=== PATIENT | female | born 1965 | race Caucasian/White ===

== ENCOUNTER 2017-09-02 04:05 | Emergency (ER) | payer BC ==
[2017-09-02] MEDS ORDERED: HYDROmorphone 1 MG/ML Syringe IVPUSH ONE (04:29)
[2017-09-02] MEDS ORDERED: Ondansetron 4 MG/2 ML SDV IVPUSH ONE (04:29)
[2017-09-02] MEDS ORDERED: Sodium Chloride 0.9% 1,000 ML IV SCH (04:30)
[2017-09-02] MEDS ORDERED: Tamsulosin 0.4 MG Cap.ER PO ONE (04:34)
[2017-09-02] MEDS ORDERED: Ketorolac 30 MG/ML SDV IVPUSH STA (04:35)
--- NOTE | 2017-09-02 04:41 | EDM.PDOC ---
<Ernesto Velasquez - Last Filed: 09/02/17 06:50> ED HPI GENERAL MEDICAL PROBLEM - General Chief Complaint: Flank Pain Stated Complaint: LEFT SIDE PAIN Time Seen by Provider: 09/02/17 04:23 Source of Information: Reports: Patient, Other (Friend) History Limitations: Reports: No Limitations - History of Present Illness INITIAL COMMENTS - FREE TEXT/NARRATIVE: The patient states that she has not been feeling well for the past few days, but was then woken at 01:50 this morning with severe sharp/crampy left upper abdominal pain radiating to her left flank. The pain has progressively gotten worse. It is not modifiable. The patient has had nausea and emesis. She reports weeks of constipation, but no recent diarrhea. She denies having dysuria, but has had urinary urgency for past 7 days. No recent fever. No prior similar symptoms. The patient's PCP is Dr. Barth. Left Lower Abdomen Pain Score (Numeric/FACES): 8 - Related Data Allergies Allergy/AdvReac Type Severity Reaction Status Date / Time Penicillins Allergy Hives Verified 09/02/17 04:15 Home Meds: Home Meds Digoxin [Digox] 125 mcg PO DAILY 09/02/17 [History] Glimepiride [Amaryl] 4 mg PO DAILY 09/02/17 [History] Hydrocodone/Acetaminophen [Hydrocodon-Acetaminophen 5-325] 1 - 2 each PO Q6HR PRN #20 tablet 09/02/17 [Rx] Levofloxacin [Levaquin] 500 mg PO Q24H #5 tablet 09/02/17 [Rx] Metoprolol Tartrate [Lopressor] 100 mg PO DAILY 09/02/17 [History] Multivitamins [Tab-A-George] 1 tab PO DAILY 09/02/17 [History] Raloxifene HCl [Evista] 60 mg PO DAILY 09/02/17 [History] Tamsulosin HCl [Flomax] 0.4 mg PO DAILY #7 cap.er.24h 09/02/17 [Rx] atorvaSTATin [Lipitor] 40 mg PO BEDTIME 09/02/17 [History] metFORMIN [Glucophage XR] 1,000 mg PO BIDMEALS 09/02/17 [History] Past Medical History Cardiovascular History: Reports: Arrhythmia (tachycardia), High Cholesterol, Hypertension Neurological History: Reports: Migraines Endocrine/Metabolic History: Reports: Diabetes, Type I Oncologic (Cancer) History: Reports: Breast - Past Surgical History HEENT Surgical History: Reports: Tonsillectomy (2000) GI Surgical History: Reports: Bariatric Procedure (Gastric sleeve, 2011) Female Surgical History: Reports: Hysterectomy (2005), Salpingo-Oophorectomy (2005) Musculoskeletal Surgical History: Reports: Carpal Tunnel (bilateral 1997) Oncologic Surgical History: Reports: Biopsy of Breast (left), Lumpectomy (left, 2005) Social & Family History - Tobacco Use Smoking Status *Q: Never Smoker - Alcohol Use Alcohol Use History: Yes Alcohol Use Frequency: Socially - Recreational Drug Use Recreational Drug Use: No - Living Situation & Occupation Living situation: Reports: , Other (with friend) 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 ED EXAM, RENAL/ - Physical Exam Exam: See Below Exam Limited By: No Limitations General Appearance: Alert, WD/WN, Moderate Distress (crying with pain) Eye Exam: Bilateral Eye: Normal Inspection Ears: Normal External Exam, Hearing Grossly Normal Nose: Normal Inspection, No Blood Throat/Mouth: Normal Inspection, Normal Lips, Normal Voice, No Airway Compromise Head: Atraumatic, Normocephalic Neck: Normal Inspection, Full Range of Motion Respiratory/Chest: No Respiratory Distress, Lungs Clear, Normal Breath Sounds, No Accessory Muscle Use Cardiovascular: Normal Peripheral Pulses, Regular Rate, Rhythm, No Gallop, No JVD, No Murmur, No Rub GI/Abdominal: Normal Bowel Sounds, Soft, Non-Tender (including the LUQ), No Organomegaly, No Distention, No Abnormal Bruit, No Mass (Female) Exam: Deferred Rectal (Female) Exam: Deferred Back Exam: Normal Inspection, Full Range of Motion, CVA Tenderness (L). No: CVA Tenderness (R) Extremities: Normal Inspection, Normal Range of Motion, No Pedal Edema, Normal Capillary Refill Neurological: Alert, Oriented, Normal Cognition, No Motor/Sensory Deficits Psychiatric: Normal Affect Skin Exam: Warm, Dry, Intact, Normal Color, No Rash Course - Vital Signs Last Recorded V/S: Last Vital Signs Temp 98.3 F 09/02/17 04:11 Pulse 84 09/02/17 04:11 Resp 18 09/02/17 04:11 BP 156/90 H 09/02/17 04:11 Pulse Ox 97 09/02/17 04:11 - Orders/Labs/Meds Orders: Active Orders 24 hr Category Date Time Status Strain Urine [RC] ASDIRECTED Care 09/02/17 04:35 Active CULTURE URINE [RM] Stat Lab 09/02/17 05:00 Results Sodium Chloride 0.9% [Normal Saline] 1,000 ml Med 09/02/17 04:30 Active IV ASDIRECTED Medication Orders Sodium Chloride (Normal Saline) 1,000 mls @ 150 mls/hr IV ASDIRECTED TIMO Last Admin: 09/02/17 04:36 Dose: 150 mls/hr Labs: Laboratory Tests 09/02/17 09/02/17 09/02/17 Range/Units 05:00 05:40 05:40 WBC 10.24 H (3.98-10.04) K/mm3 RBC 4.57 (3.98-5.22) M/mm3 Hgb 13.3 (11.2-15.7) gm/L Hct 39.0 (34.1-44.9) % MCV 85.3 (79.4-94.8) fl MCH 29.1 (25.6-32.2) pg MCHC 34.1 (32.2-35.5) g/dl RDW Std Deviation 38.6 (36.4-46.3) fL Plt Count 180 L (182-369) K/mm3 MPV 10.2 (9.4-12.3) fl Neutrophils % (Manual) 90 H (40-60) % Band Neutrophils % 2 (0-10) % Lymphocytes % (Manual) 4 L (20-40) % Atypical Lymphs % 0 % Monocytes % (Manual) 3 (2-10) % Eosinophils % (Manual) 1 (0.7-5.8) % Basophils % (Manual) 0 L (0.1-1.2) Platelet Estimate Adequate RBC Morph Comment Normal Sodium 136 (136-145) mEq/L Potassium 3.9 (3.5-5.1) mEq/L Chloride 97 L (98-107) mEq/L Carbon Dioxide 31 (21-32) mEq/L Anion Gap 11.9 (5-15) BUN 15 (7-18) mg/dL Creatinine 0.6 (0.55-1.02) mg/dL Est Cr Clr Drug Dosing 111.90 mL/min Estimated GFR (MDRD) > 60 (>60) mL/min BUN/Creatinine Ratio 25.0 H (14-18) Glucose 374 H (74-106) mg/dL Calcium 9.0 (8.5-10.1) mg/dL Total Bilirubin 0.7 (0.2-1.0) mg/dL AST 23 (15-37) U/L ALT 43 (14-59) U/L Alkaline Phosphatase 69 (46-116) U/L Total Protein 6.9 (6.4-8.2) g/dl Albumin 3.2 L (3.4-5.0) g/dl Globulin 3.7 gm/dL Albumin/Globulin Ratio 0.9 L (1-2) Lipase 174 (73-393) U/L Urine Color Yellow (Yellow) Urine Appearance Clear (Clear) Urine pH 5.5 (5.0-8.0) Ur Specific [place] 1.025 (1.005-1.030) Urine Protein 2+ H (Negative) Urine Glucose (UA) 2+ H (Negative) Urine Ketones 3+ H (Negative) Urine Occult Blood Negative (Negative) Urine Nitrite Positive H (Negative) Urine Bilirubin Negative (Negative) Urine Urobilinogen 0.2 (0.2-1.0) Ur Leukocyte Esterase Negative (Negative) Urine RBC 0-5 (0-5) /hpf Urine WBC 20-30 H (0-5) /hpf Ur Epithelial Cells 0-5 (0-5) /hpf Amorphous Sediment Few H (NOT SEEN) /hpf Urine Bacteria Many H (FEW) /hpf Urine Mucus Not seen (FEW) /hpf Meds: Medications Generic Name Dose Route Start Last Admin Trade Name Freq PRN Reason Stop Dose Admin Sodium Chloride 1,000 mls @ 150 mls/hr 09/02/17 04:30 09/02/17 04:36 Normal Saline IV 150 mls/hr ASDIRECTED TIMO Administration Discontinued Medications Generic Name Dose Route Start Last Admin Trade Name Freq PRN Reason Stop Dose Admin Hydromorphone HCl 1 mg 09/02/17 04:29 09/02/17 04:41 Dilaudid IVPUSH 09/02/17 04:30 1 mg ONETIME ONE Administration Levofloxacin/Dextrose 750 mg/ 150 mls @ 100 mls/hr 09/02/17 05:56 09/02/17 06 :20 Premix IV 09/02/17 07:25 100 mls/hr ONETIME ONE Administration Insulin Human Regular 10 unit 09/02/17 06:49 09/02/17 07:02 Humulin R SUBCUT 09/02/17 06:50 10 units ONETIME STA Administration Protocol Ketorolac Tromethamine 30 mg 09/02/17 04:35 09/02/17 04:47 Toradol IVPUSH 09/02/17 04:36 30 mg ONETIME STA Administration Ondansetron HCl 4 mg 09/02/17 04:29 09/02/17 04:36 Zofran IVPUSH 09/02/17 04:30 4 mg ONETIME ONE Administration Tamsulosin HCl 0.4 mg 09/02/17 04:34 09/02/17 04:46 Flomax PO 09/02/17 04:35 0.4 mg ONETIME ONE Administration - Re-Assessments/Exams Free Text/Narrative Re-Assessment/Exam: 09/02/17 04:36 Clinically, the patient is most likely suffering from a proximal left ureterolith, however, we want to be sure that she does not have a UTI or an infected stone, therefore I have asked the nurse to acquire the urinalysis via quick-catheter. The patient has agreed. In the meantime, I have ordered Dilaudid , Toradol, Zofran, Flomax, and IV fluid. If the urinalysis demonstrates hematuria, as expected, I will order a CT scan of the abdomen and pelvis without contrast. If, however, there is no blood in the urine, I will order the CT with oral and IV contrast. 09/02/17 06:50 The patient's CMP has returned with a blood glucose of 374. I have ordered 10 units regular insulin subcutaneously. 09/02/17 05:56 The patient's urinalysis has returned negative for blood, but nitrite positive, 20-30 WBCs, and many bacteria. This is consistent with a UTI, and, given the patient's flank pain and CVA tenderness, pyelonephritis. A urine culture has been ordered, and I will start the patient on empiric Levaquin, in accordance with current guidelines. Departure - Departure Disposition: Home, Self-Care 01 Clinical Impression: UTI, Urinary tract infectious disease, Pyelonephritis, Kidney stone on left side, Ureteral calculi - Discharge Information Prescriptions: Hydrocodone/Acetaminophen [Hydrocodon-Acetaminophen 5-325] 1 - 2 each PO Q6HR PRN #20 tablet PRN Reason: Pain Levofloxacin [Levaquin] 500 mg PO Q24H #5 tablet Tamsulosin HCl [Flomax] 0.4 mg PO DAILY #7 cap.er.24h Referrals: Warren Burroughs MD [Primary Care Provider] - 1 Week Forms: ED Department Discharge Additional Instructions: Drink plenty of fluids. Take the levaquin daily for 5 days. Take the flomax daily until gone. Take the hydrocodone as needed for pain. Please return if you are worse such as more pain, nausea, vomiting, fever or for any other concerns. Follow up with Dr Barth in 1 week. <Jaun Dickerson - Last Filed: 09/02/17 08:06> Course - Re-Assessments/Exams Free Text/Narrative Re-Assessment/Exam: 09/02/17 07:[address] Velasquez. Her CT is back and it shows mild left-sided ureteral dilatation. Inflammatory change around the left kidney and ureter. These findings presumably due to poorly seen distal left ureteral stone. Pyelonephritis can cause a similar appearance although there is usually not as much inflammatory change around the ureter with infection as seen on current exam. It is not totally clear which one she has so I will treat her for both. She has an elevated WBC and UTI which supports the pyelonephritis. I will get her on levaquin, flomax, and something for pain. Departure - Departure Time of Disposition: 08:05 Condition: Good
[2017-09-02] MEDS ORDERED: Levofloxacin/Dextrose 5%-Water 750 MG in Premix Bag 1 BAG IV ONE (05:56)
[2017-09-02] MEDS ORDERED: Insulin Regular, Human 100 Units/ML 3 ML Vial SUBCUT STA (06:49)
--- NOTE | 2017-09-02 07:38 | CT ---
CT abdomen and pelvis Technique: Multiple axial sections were obtained from above the dome of the diaphragm inferiorly through the pubic symphysis. Intravenous and oral contrast was utilized. Delayed images were also obtained through the bladder. Comparison: No prior abdominal imaging. Findings: Left kidney shows mild surrounding inflammatory change. Inflammatory change is also seen around portions of the proximal ureter. Left ureter is mildly prominent in size down to the pelvis. Several calcifications are noted next to the distal left ureter. Findings presumably represent a poorly seen distal left ureteral stone as the etiology. Visualized lung bases shows nothing acute. Liver shows no focal parenchymal abnormality. Gallbladder contains no calcified gallstones. Spleen appears normal. Adrenal glands show no nodule. Minimal low-density lesion is noted within the inferior left kidney measuring about 5 mm in size which is felt compatible with small cortical cyst. No abnormal calcifications are seen within the kidneys. Pancreas is within normal limits. Aorta shows mild atherosclerotic change without aneurysmal dilatation. No retroperitoneal adenopathy is seen. No pelvic mass or adenopathy is identified. Appendix is seen which appears normal. Bone window settings were reviewed which shows vacuum phenomena within the L4-L5 disc. Minimal vacuum phenomena noted within the L3-L4 disc. Impression: 1. Mild left-sided ureteral dilatation. Inflammatory change around the left kidney and ureter. These findings presumably due to poorly seen distal left ureteral stone. Pyelonephritis can cause a similar appearance although there is usually not as much inflammatory change around the ureter with infection as seen on current exam. 2. Other incidental findings as noted above. Diagnostic code #3
== END 2017-09-02 08:22 | disposition home or self-care (01) ==
LOC: JD.ED 04:05
DX: N20.2 Calculus of kidney with calculus of ureter (principal); B96.20 Unspecified Escherichia coli [E. coli] as the cause of diseases classified elsewhere; I10 Essential (primary) hypertension; E78.00 Pure hypercholesterolemia, unspecified; E10.9 Type 1 diabetes mellitus without complications; Z79.84 Long term (current) use of oral hypoglycemic drugs; Z79.899 Other long term (current) drug therapy; Z88.0 Allergy status to penicillin
CPT/HCPCS: 36415; 74177; 80053; 81001; 83690; 85025; 87086; 87088; 87186; 96361; 96365; 96366; 96372; 96375; 99284; A9270; J1170; J1817; J1885; J1956; J2405; J7040; P9612; J1815

== ENCOUNTER 2018-10-10 18:32 | Emergency (ER) | payer BC ==
[2018-10-10] MEDS ORDERED: Ondansetron 4 MG/2 ML SDV IVPUSH ONE (19:45)
[2018-10-10] MEDS ORDERED: Haloperidol Lactate 5 MG/ML SDV IM ONE (19:45)
[2018-10-10] MEDS ORDERED: Sodium Chloride 0.9% 1,000 ML IV ONE (19:45)
[2018-10-10] MEDS ORDERED: Benztropine 1 MG Tab PO STA (19:45)
--- NOTE | 2018-10-10 19:53 | EDM.PDOC ---
ED HPI GENERAL MEDICAL PROBLEM - General Chief Complaint: Headache Stated Complaint: BLURRED VISION HEAD PAIN Time Seen by Provider: 10/10/18 19:02 Source of Information: Reports: Patient, RN Notes Reviewed, Other (Friend) History Limitations: Reports: No Limitations - History of Present Illness INITIAL COMMENTS - FREE TEXT/NARRATIVE: The patient states that she felt a spark sensation to her left anglican on 2 occasions last night. She states that she did not pay much attention to it; it was almost as if stat collectors he had somehow built up on her eyeglasses and shocked her. She had 2 more episodes while at work today, plus one episode here in the ED, that was even stronger than the previous episodes. She also developed bilateral cheek numbness around 17:45 this afternoon, that lasted about 15-20 minutes and has since resolved. The patient also reports that she developed a headache, felt in the center of her forehead and extending up to the top of her head, along with photophobia, blurry vision, and nausea, that all began around 17:45. No phonophobia or emesis. She states that her body has been feeling jittery all day today. No prior similar constellation of symptoms. The patient states that she has rare headaches, usually when she is dehydrated. The patient states that she has a history of migraines, but only 3-4 episodes over the course of a year, about 30 years ago. The patient states that she has not had an imaging study of her head, either a CT or MRI, ever. The patient reports a great deal of stress in her life, presently. The patient states that she has type 2 diabetes, and that she takes her medications as prescribed, but does not check her blood sugars very often. The last time she checked it herself was about 5 weeks ago, but she had some blood tests drawn about 4 weeks ago. She states that her hemoglobin A1c was 9.1%, down from 11.1% previously. The patient's PCP is Dr. Warren Burroughs. - Related Data Allergies Allergy/AdvReac Type Severity Reaction Status Date / Time Penicillins Allergy Hives Verified 09/02/17 04:15 Home Meds: Home Meds Digoxin [Digox] 250 mcg PO DAILY 09/02/17 [History] Glimepiride [Amaryl] 4 mg PO DAILY 09/02/17 [History] Metoprolol Tartrate [Lopressor] 100 mg PO DAILY 09/02/17 [History] Multivitamins [Tab-A-George] 1 tab PO DAILY 09/02/17 [History] Raloxifene HCl [Evista] 60 mg PO DAILY 09/02/17 [History] atorvaSTATin [Lipitor] 40 mg PO BEDTIME 09/02/17 [History] metFORMIN [Glucophage XR] 1,000 mg PO BIDMEALS 09/02/17 [History] Insulin Detemir [Levemir] 40 unit SUBCUT BEDTIME 10/10/18 [History] Lisinopril 10 mg PO DAILY 10/10/18 [History] Past Medical History Cardiovascular History: Reports: High Cholesterol, Hypertension Neurological History: Reports: Migraines (3-4 episodes around 1979) Endocrine/Metabolic History: Reports: Diabetes, Type II, Obesity/BMI 30+ Oncologic (Cancer) History: Reports: Breast (left) - Past Surgical History HEENT Surgical History: Reports: Tonsillectomy (2000) GI Surgical History: Reports: Bariatric Procedure (gastric sleeve 2011), Cholecystectomy (1997) Female Surgical History: Reports: Hysterectomy (2005), Salpingo-Oophorectomy (bilateral, 2005) Musculoskeletal Surgical History: Reports: Carpal Tunnel Oncologic Surgical History: Reports: Biopsy of Breast (left), Lumpectomy (left, 2005) Social & Family History - Family History Family Medical History: Noncontributory - Tobacco Use Smoking Status *Q: Never Smoker - Caffeine Use Caffeine Use: Reports: Coffee - Alcohol Use Alcohol Use History: Yes Alcohol Use Frequency: Socially - Recreational Drug Use Recreational Drug Use: No - Living Situation & Occupation Living situation: Reports: , Other (with friend) 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 - Physical Exam Exam: See Below Exam Limited By: No Limitations General Appearance: Alert, WD/WN, No Apparent Distress Eye Exam: Bilateral Eye: EOMI, Normal Inspection Ears: Normal External Exam, Hearing Grossly Normal Nose: Normal Inspection Throat/Mouth: Normal Inspection, Normal Lips, Normal Voice, No Airway Compromise Head Exam: Atraumatic, Normocephalic Neck: Normal Inspection, Full Range of Motion Respiratory/Chest: No Respiratory Distress, Lungs Clear, Normal Breath Sounds, No Accessory Muscle Use Cardiovascular: Normal Peripheral Pulses, Regular Rate, Rhythm, No Gallop, No JVD, No Murmur, No Rub GI/Abdominal: Normal Bowel Sounds, Soft, Non-Tender, No Organomegaly, No Distention, No Abnormal Bruit, No Mass, Other (Obese) (Female) Exam: Deferred Rectal (Female) Exam: Deferred Neuro Exam (Abbreviated): Alert, Oriented, CN II-XII Intact, Normal Cognition, No Motor/Sensory Deficits Back Exam: Normal Inspection, Full Range of Motion, NT Extremities: Normal Inspection, Normal Range of Motion, No Pedal Edema, Normal Capillary Refill Psychiatric: Normal Affect Skin Exam: Warm, Dry, Intact, Normal Color, No Rash Course - Vital Signs Last Recorded V/S: Last Vital Signs Temp 36.2 C 10/10/18 18:41 Pulse 78 10/10/18 18:41 Resp 16 10/10/18 18:41 BP 142/79 H 10/10/18 18:41 Pulse Ox 98 10/10/18 18:41 - Orders/Labs/Meds Orders: Active Orders 24 hr Category Date Time Status Accu Check [Blood Glucose Check, Bedside] [RC] ONETIME Care 10/10/18 19:28 Active Labs: Laboratory Tests 10/10/18 Range/Units 19:34 POC Glucose 264 H (70-105) mg/dL Meds: Medications Discontinued Medications Generic Name Dose Route Start Last Admin Trade Name Freq PRN Reason Stop Dose Admin Benztropine Mesylate 1 mg 10/10/18 19:45 10/10/18 20:24 Cogentin PO 10/10/18 19:46 1 mg ONETIME STA Administration Haloperidol Lactate 5 mg 10/10/18 19:45 10/10/18 20:23 Haldol IM 10/10/18 19:46 5 mg ONETIME ONE Administration Sodium Chloride 1,000 mls @ 999 mls/hr 10/10/18 19:45 10/10/18 20:22 Normal Saline IV 10/10/18 20:45 999 mls/hr ONETIME ONE Administration Ketorolac Tromethamine 30 mg 10/10/18 21:00 10/10/18 21:16 Toradol IVPUSH 10/10/18 21:01 30 mg ONETIME STA Administration Ondansetron HCl 4 mg 10/10/18 19:45 10/10/18 20:22 Zofran IVPUSH 10/10/18 19:46 4 mg ONETIME ONE Administration Orphenadrine Citrate 100 mg 10/10/18 21:00 10/10/18 21:16 Norflex PO 10/10/18 21:01 100 mg ONETIME STA Administration - Re-Assessments/Exams Free Text/Narrative Re-Assessment/Exam: 10/10/18 19:52 By the patient's history, she is suffering from a migraine. I have ordered IM Haldol, oral Cogentin, IV Zofran, and IV fluid, and we will see if her symptoms don't improve. In the meantime, because the patient has never undergone a CT or MRI of her head, current guidelines recommend that we obtain a CT scan tonight, even though her neurologic examination is normal. 10/10/18 20:58 CT of the head without contrast is read by Dr. Mckenzie as: 1. Nothing acute is identified on noncontrast head CT exam. 10/10/18 21:01 The patient states that she feels good, although her headache has not improved. This strongly suggests that her headache is not migrainous. I have ordered IV Toradol and oral Norflex, for treatment of a tension headache. 10/10/18 21:36 Following Toradol and Norflex, the patient states that she is feeling all better. I will discharge her home. Departure - Departure Time of Disposition: 21:37 Disposition: Home, Self-Care 01 Condition: Good Clinical Impression: Tension headache, Hyperglycemia due to type 2 diabetes mellitus - Discharge Information *PRESCRIPTION DRUG MONITORING PROGRAM REVIEWED*: Not Applicable *COPY OF PRESCRIPTION DRUG MONITORING REPORT IN PATIENT MANDI: Not Applicable Instructions: Hyperglycemia, [id number], Tension Headache, Adult Referrals: Warren Burrouhgs MD [Primary Care Provider] - Forms: ED Department Discharge Additional Instructions: You were seen in the emergency room for shocklike pain to her left anglican, last night and tonight, along with facial numbness, headache, sensitivity to light, blurry vision, and nausea. Workup in the ER included a CT scan of your head, which returned normal. Your blood sugar was found to be elevated at 264. Your headache resolved after your given IM, IV, and oral medicine. Get plenty of rest tonight in a dark, quiet placed, then resume your usual activities tomorrow. Follow-up with your PCP, Dr. Warren Barth, at the next available appointment, to address your high blood sugar. - My Orders Last 24 Hours: My Active Orders 10/10/18 19:28 Accu Check [Blood Glucose Check, Bedside] [RC] ONETIME - Assessment/Plan Last 24 Hours: My Active Orders 10/10/18 19:28 Accu Check [Blood Glucose Check, Bedside] [RC] ONETIME
--- NOTE | 2018-10-10 20:29 | CT ---
Head CT Technique: Multiple axial sections through the brain were obtained. Intravenous contrast was not utilized. Comparison: No prior intracranial imaging is available. Findings: Ventricles along with basal cisterns and sulci over the convexities appear within normal limits for the patient's age. No abnormal parenchymal densities are seen. No evidence of intracranial hemorrhage. No midline shift or mass effect is seen. Bone window settings were obtained which shows no discrete calvarial abnormality. Visualized sinuses are clear. Impression: 1. Nothing acute is identified on noncontrast head CT exam. Diagnostic code #1
[2018-10-10] MEDS ORDERED: Ketorolac 30 MG/ML SDV IVPUSH STA (21:00)
[2018-10-10] MEDS ORDERED: Orphenadrine 100 MG Tab.ER PO STA (21:00)
== END 2018-10-10 21:45 | disposition home or self-care (01) ==
LOC: JD.ED 18:32
DX: G44.209 Tension-type headache, unspecified, not intractable (principal); E11.65 Type 2 diabetes mellitus with hyperglycemia; E78.00 Pure hypercholesterolemia, unspecified; I10 Essential (primary) hypertension; Z88.0 Allergy status to penicillin; Z79.899 Other long term (current) drug therapy; Z79.4 Long term (current) use of insulin
CPT/HCPCS: 70450; 82962; 96361; 96372; 96374; 96375; 99284; A9270; J1630; J1885; J2405; J7040